=== PATIENT | male | born 1970 ===

== ENCOUNTER → 2018-06-24 20:51 | Outpatient (REF) | payer OTHER, SELFPAY ==
[2018-06-24 21:36] LABS: Add Manual Diff / Slide Review NO; Basophils Percent Auto 1.1 % (0-2); Eosinophils Percent Auto 3.2 % (2-4); Hematocrit 47.7 % (41-53); Hemoglobin 16.3 g/dL (13.5-17.5); Lymphocytes Percent Auto 25.9 % (25-40); Mean Corpuscular HGB Conc 34.2 % (30-36); Mean Corpuscular Hemoglobin 29.3 PG (26-34); Mean Corpuscular Volume 85.6 fL (80-100); Monocytes Percent Auto 8.2 % (3-14); Neutrophils Absolute Auto 3200 /uL (3000-5900); Neutrophils Percent Auto 61.6 % (50-75); Platelet Count 233 X10^3/uL (150-400); Red Blood Cell Count 5.58 X10^6/uL (4.5-5.9); Red Cell Distribution Width 13.1 % (11.6-14.8); White Blood Cell Count 5.2 X10^3/uL (4.5-11.0)
[2018-06-24 23:06] LABS: Hemoglobin A1C% w Est Avg Glu 7.1 % (4.0-6.0)
[2018-06-24 23:22] LABS: Alanine Aminotransferase 44 IU/L (21-72); Albumin 4.6 g/dL (3.5-5.0); Albumin Globulin Ratio 1.8 (1.0-2.8); Alkaline Phosphatase 69 U/L (38-126); Aspartate Aminotransferase 33 IU/L (17-59); BUN Creatinine Ratio 17.5 (6-22); Bilirubin Total 0.9 mg/dL (0.2-1.3); Blood Urea Nitrogen 14 mg/dL (9-20); Calcium 9.7 mg/dL (8.4-10.2); Carbon Dioxide 29 mmol/L (22-32); Chloride 102 mmol/L (98-107); Estimated Glomerular Filt Rate > 60.0 mL/min (>60); Globulin 2.6 g/dL (1.7-4.1); Glucose 148 mg/dL (70-100); HEMOLYSIS < 15 (0-50); Potassium 4.4 mmol/L (3.4-5.1); Sodium 144 mmol/L (137-145); Total Protein 7.2 g/dL (6.3-8.2)
[2018-06-24 23:55] LABS: Ferritin 93.8 ng/mL (17.9-464)
[2018-06-26 14:59] LABS: Estradiol 30 pg/mL (< 40)
[2018-06-27 15:26] LABS: PSA Total 1.74 ng/mL (< 4.01)
[2018-06-28 18:16] LABS: Testosterone Free 75.4 pg/mL (35.0-155.0); Testosterone Total 358 ng/dL (250-1100)
[2018-07-01 08:23] LABS: Lipoprofile NMR SEE SEPARATE REPORTS
== END ==
LOC: LAB 20:51
PROVIDERS: Visit Provider Naturopath
DX: E11.9 Type 2 diabetes mellitus without complications (principal); E29.1 Testicular hypofunction; E78.5 Hyperlipidemia, unspecified; R63.5 Abnormal weight gain
CPT/HCPCS: 80053; 82670; 82728; 83036; 83704; 84153; 84154; 84402; 84403; 85025

== ENCOUNTER → 2018-09-26 21:28 | Outpatient (REF) | payer OTHER, SELFPAY ==
[2018-09-26 22:12] LABS: Alanine Aminotransferase 65 IU/L (21-72); Albumin 4.7 g/dL (3.5-5.0); Albumin Globulin Ratio 1.7 (1.0-2.8); Alkaline Phosphatase 71 U/L (38-126); Aspartate Aminotransferase 39 IU/L (17-59); Bilirubin Total 0.8 mg/dL (0.2-1.3); Blood Urea Nitrogen 20 mg/dL (9-20); Calcium 10.2 mg/dL (8.4-10.2); Carbon Dioxide 26 mmol/L (22-32); Chloride 101 mmol/L (98-107); Estimated Glomerular Filt Rate > 60.0 mL/min (>60); Globulin 2.7 g/dL (1.7-4.1); Glucose 145 mg/dL (70-100); HEMOLYSIS < 15 (0-50); Potassium 4.5 mmol/L (3.4-5.1); Sodium 140 mmol/L (137-145); Total Protein 7.4 g/dL (6.3-8.2)
[2018-09-26 22:47] LABS: Ferritin 63.3 ng/mL (17.9-464)
[2018-09-27 03:50] LABS: Hemoglobin A1C% w Est Avg Glu 7.2 % (4.0-6.0)
[2018-09-28 14:25] LABS: PSA Total 1.65 ng/mL (< 4.01)
[2018-09-28 19:50] LABS: Estradiol 27 pg/mL (< 40)
[2018-10-01 13:36] LABS: Testosterone, Total 328.4; Testosterone,Free 7.7
[2018-10-01 14:49] LABS: Lipoprofile NMR SEE SEPERATE REPORT
== END ==
LOC: LAB 21:28
PROVIDERS: Visit Provider Naturopath
DX: E29.1 Testicular hypofunction (principal); E11.9 Type 2 diabetes mellitus without complications; E78.5 Hyperlipidemia, unspecified; R63.5 Abnormal weight gain; E83.119 Hemochromatosis, unspecified
CPT/HCPCS: 36415; 80053; 82670; 82728; 83036; 83704; 84153; 84154; 84270; 84402; 84403